=== PATIENT | male | born 1950 | race African-American/Black ===

== ENCOUNTER 2016-11-26 07:04 | Outpatient (CLI) | payer BC, MEDICARE ==
[2016-11-26 07:37] LABS: Hemoglobin A1c 7.6 % (4.0-6.0)
[2016-11-26 07:52] LABS: ALT (SGPT) 29 U/L (0-55); AST (SGOT) 24 U/L (5-34); Albumin 3.8 g/dL (3.4-4.8); Alkaline Phosphatase 72 U/L (40-150); Anion Gap 14 mmol/L (10-20); BUN (Urea Nitrogen) 16 mg/dL (8.4-25.7); Bilirubin, Direct 0.2 mg/dL (0.1-0.3); Bilirubin, Total 0.3 mg/dL (0.2-1.2); Calc. Creatinine Clearance 0 mL/min (70-130); Calcium 8.8 mg/dL (7.8-10.44); Carbon Dioxide 23 mmol/L (23-31); Chloride 104 mmol/L (98-107); Cholesterol 158 mg/dL (< 200 Desired); Estimated GFR-MDRD 58; Glucose 146 mg/dL (80-115); HDL Cholesterol 40 mg/dL (>60 Neg Risk); LDL Cholesterol, Calculated 100 mg/dL; Potassium 4.2 mmol/L (3.5-5.1); Protein, Total 7.2 g/dL (5.8-8.1); Sodium 137 mmol/L (136-145); Triglycerides 89 mg/dL (Less than 150)
== END 2016-11-26 07:05 | disposition home or self-care (01) ==
LOC: MADLABBHPM 07:04
PROVIDERS: ATTEND Family Medicine
DX: E11.9 Type 2 diabetes mellitus without complications (principal)
CPT/HCPCS: 36415; 80048; 80061; 80076; 83036

== ENCOUNTER 2017-07-26 07:15 | Outpatient (CLI) | payer MEDICARE, BC ==
[2017-07-26 07:49] LABS: Hemoglobin 15.1 g/dL (14.0-18.0); Mean Corpuscular HGB CONC 30.5 g/dL (32.0-36.0); Mean Corpuscular Hemoglobin 23.8 pg (27.0-31.0); Mean Corpuscular Volume 78.2 fL (80.0-94.0); Platelet Count 292 thou/uL (130-400); RBC Distribution Width 15.1 % (11.5-14.5); Red Blood Cell (RBC) Count 6.36 mill/uL (4.70-6.10); White Blood Cell (WBC) Count 7.2 thou/uL (4.8-10.8)
[2017-07-26 07:53] LABS: ALT (SGPT) 37 U/L (8-55); AST (SGOT) 26 U/L (5-34); Albumin 3.8 g/dL (3.4-4.8); Alkaline Phosphatase 76 U/L (40-150); BUN (Urea Nitrogen) 10 mg/dL (8.4-25.7); Bilirubin, Direct 0.2 mg/dL (0.1-0.3); Bilirubin, Total 0.4 mg/dL (0.2-1.2); Calc. Creatinine Clearance 0 mL/min (70-130); Estimated GFR-MDRD 63; Triglycerides 82 mg/dL (Less than 150)
[2017-07-27 06:15] LABS: Antinuclear AB Negative (Negative)
== END 2017-07-26 07:16 | disposition home or self-care (01) ==
LOC: MADLAB 07:15
PROVIDERS: ATTEND Physician Assistant Medical
DX: L40.0 Psoriasis vulgaris (principal)
CPT/HCPCS: 36415; 80076; 82565; 84478; 84520; 85027; 86038

== ENCOUNTER 2017-10-12 07:23 | Outpatient (CLI) | payer MEDICARE, BC ==
[2017-10-12 08:18] LABS: ALT (SGPT) 40 U/L (8-55); AST (SGOT) 29 U/L (5-34); Albumin 3.9 g/dL (3.4-4.8); Alkaline Phosphatase 79 U/L (40-150); BUN (Urea Nitrogen) 11 mg/dL (8.4-25.7); Bilirubin, Direct 0.2 mg/dL (0.1-0.3); Bilirubin, Total 0.5 mg/dL (0.2-1.2); Calc. Creatinine Clearance 0 mL/min (70-130); Estimated GFR-MDRD 69; Protein, Total 7.9 g/dL (5.8-8.1); Triglycerides 93 mg/dL (Less than 150)
[2017-10-12 08:40] LABS: Mean Corpuscular Hemoglobin 23.9 pg (27.0-31.0); Mean Corpuscular Volume 79.6 fl (80.0-94.0); Mean Platelet Volume 10.5 fL (7.4-10.4); Platelet Count 254 thou/uL (130-400); RBC Distribution Width 15.2 % (11.5-14.5); Red Blood Cell (RBC) Count 6.28 mill/uL (4.70-6.10); White Blood Cell (WBC) Count 6.2 thou/uL (4.8-10.8)
[2017-10-13 09:19] LABS: Antinuclear AB Negative (Negative)
== END 2017-10-12 07:24 | disposition home or self-care (01) ==
LOC: MADLAB 07:23
PROVIDERS: ATTEND Physician Assistant Medical
DX: L40.0 Psoriasis vulgaris (principal)
CPT/HCPCS: 36415; 80076; 82565; 84478; 84520; 85027; 86038

== ENCOUNTER 2017-11-24 10:32 | Outpatient (CLI) | payer BC, MEDICARE ==
[2017-11-24 11:07] LABS: Bilirubin Negative (Negative); Blood, Urine Negative (Negative); Clarity Clear (Clear); Glucose, Urine (Dipstick) >=1000 mg/dL (Negative); Leukocyte Negative (Negative); Nitrite Negative (Negative); Protein, Urine (Dipstick) Negative (Neg-Trace); Specific Gravity, Urine 1.015 (1.005-1.030); Urobilinogen 0.2 mg/dL (0.2-1.0); pH, Urine 5.5 (5.0-9.0)
[2017-11-24 11:14] LABS: RBC/HPF 0-3 HPF (0-3); WBC/HPF 0-3 HPF (0-3)
[2017-11-24 11:15] LABS: Bacteria/HPF Rare-Few HPF (None Seen); Squamous Epithelial 0-3 HPF (0-3)
== END 2017-11-24 10:33 | disposition home or self-care (01) ==
LOC: MADLABSP 10:32
PROVIDERS: ATTEND Family Medicine
DX: R30.0 Dysuria (principal)
CPT/HCPCS: 36415; 81001; 87086

== ENCOUNTER 2018-02-23 07:06 | Outpatient (CLI) | payer BC ==
[2018-02-23 08:23] LABS: ALT (SGPT) 29 U/L (8-55); AST (SGOT) 20 U/L (5-34); Albumin 3.8 g/dL (3.4-4.8); Alkaline Phosphatase 64 U/L (40-150); BUN (Urea Nitrogen) 11 mg/dL (8.4-25.7); Bilirubin, Direct 0.1 mg/dL (0.1-0.3); Bilirubin, Total 0.4 mg/dL (0.2-1.2); Calc. Creatinine Clearance 0 mL/min (70-130); Estimated GFR-MDRD 75; Protein, Total 7.5 g/dL (5.8-8.1); Triglycerides 70 mg/dL (Less than 150)
[2018-02-23 09:43] LABS: Hemoglobin 14.4 g/dL (14.0-18.0); Mean Corpuscular HGB CONC 29.9 g/dL (32.0-36.0); Mean Corpuscular Hemoglobin 22.5 pg (27.0-31.0); Mean Platelet Volume 8.4 fL (7.4-10.4); Platelet Count 296 thou/uL (130-400); RBC Distribution Width 14.1 % (11.5-14.5); Red Blood Cell (RBC) Count 6.41 mill/uL (4.70-6.10); White Blood Cell (WBC) Count 7.6 thou/uL (4.8-10.8)
[2018-02-24 12:27] LABS: ANA Symphony (Qualitative) Negative (Negative); dsDNA IgG Antibody 1.2 IU/mL (<10 Negative)
== END 2018-02-23 07:07 | disposition home or self-care (01) ==
LOC: MADLAB 07:06
PROVIDERS: ATTEND Physician Assistant Medical
DX: L40.0 Psoriasis vulgaris (principal)
CPT/HCPCS: 36415; 80076; 82565; 84478; 84520; 85027; 86038; 86225

== ENCOUNTER 2018-10-27 07:14 | Outpatient (CLI) | payer BC, MEDICARE ==
[2018-10-27 08:02] LABS: ALT (SGPT) 41 U/L (8-55); AST (SGOT) 27 U/L (5-34); Albumin 4.1 g/dL (3.4-4.8); Alkaline Phosphatase 74 U/L (40-150); BUN (Urea Nitrogen) 10 mg/dL (8.4-25.7); Bilirubin, Direct 0.1 mg/dL (0.1-0.3); Bilirubin, Total 0.3 mg/dL (0.2-1.2); Calc. Creatinine Clearance 0 mL/min (70-130); Estimated GFR-MDRD 65; Protein, Total 7.8 g/dL (5.8-8.1); Triglycerides 109 mg/dL (Less than 150)
[2018-10-27 08:25] LABS: Hemoglobin 14.5 g/dL (14.0-18.0); Mean Corpuscular HGB CONC 29.2 g/dL (32.0-36.0); Mean Corpuscular Volume 78.7 fL (78.0-98.0); Mean Platelet Volume 9.4 fL (7.4-10.4); Platelet Count 297 thou/uL (130-400); RBC Distribution Width 14.7 % (11.5-14.5); Red Blood Cell (RBC) Count 6.32 mill/uL (4.70-6.10); White Blood Cell (WBC) Count 7.6 thou/uL (4.8-10.8)
[2018-10-27 16:43] LABS: ANA Symphony (Qualitative) Negative (Negative); ANA Symphony (Quantitative) 0.6 Ratio (< 0.7 Negative); dsDNA IgG Antibody 0.5 IU/mL (<10 Negative)
== END 2018-10-27 07:15 | disposition home or self-care (01) ==
LOC: MADLAB 07:14
PROVIDERS: ATTEND Physician Assistant Medical
DX: L40.0 Psoriasis vulgaris (principal)
CPT/HCPCS: 36415; 80076; 82565; 84478; 84520; 85027; 86038; 86225

== ENCOUNTER 2019-03-12 07:25 | Outpatient (CLI) | payer BC, MEDICARE ==
[2019-03-12 08:37] LABS: Hemoglobin 13.8 g/dL (14.0-18.0); Mean Corpuscular HGB CONC 29.4 g/dL (32.0-36.0); Mean Corpuscular Hemoglobin 22.6 pg (27.0-31.0); Mean Corpuscular Volume 77.1 fL (78.0-98.0); Mean Platelet Volume 8.1 fL (7.4-10.4); Platelet Count 287 thou/uL (130-400); RBC Distribution Width 15.3 % (11.5-14.5); Red Blood Cell (RBC) Count 6.09 mill/uL (4.70-6.10); White Blood Cell (WBC) Count 7.4 thou/uL (4.8-10.8)
[2019-03-12 08:42] LABS: ALT (SGPT) 33 U/L (8-55); AST (SGOT) 27 U/L (5-34); Albumin 3.8 g/dL (3.4-4.8); Alkaline Phosphatase 68 U/L (40-150); BUN (Urea Nitrogen) 11 mg/dL (8.4-25.7); Bilirubin, Direct 0.1 mg/dL (0.1-0.3); Bilirubin, Total 0.2 mg/dL (0.2-1.2); Calc. Creatinine Clearance 0 mL/min (70-130); Estimated GFR-MDRD 71; Protein, Total 7.6 g/dL (5.8-8.1); Triglycerides 78 mg/dL (Less than 150)
[2019-03-14 16:17] LABS: ANA Symphony (Qualitative) Negative (Negative); ANA Symphony (Quantitative) 0.5 Ratio (< 0.7 Negative); dsDNA IgG Antibody 0.8 IU/mL (<10 Negative)
== END 2019-03-12 07:26 | disposition home or self-care (01) ==
LOC: MADLABBHPM 07:25
PROVIDERS: ATTEND Family Medicine
DX: L40.0 Psoriasis vulgaris (principal)
CPT/HCPCS: 36415; 80076; 82565; 84478; 84520; 85027; 86038; 86225

== ENCOUNTER 2019-08-06 07:07 | Outpatient (CLI) | payer BC, MEDICARE ==
[2019-08-06 07:40] LABS: Hemoglobin 14.6 g/dL (14.0-18.0); Mean Corpuscular HGB CONC 27.9 g/dL (32.0-36.0); Mean Corpuscular Hemoglobin 22.4 pg (27.0-31.0); Mean Corpuscular Volume 80.2 fL (78.0-98.0); Mean Platelet Volume 8.9 fL (7.4-10.4); Platelet Count 348 thou/uL (130-400); Red Blood Cell (RBC) Count 6.53 mill/uL (4.70-6.10); White Blood Cell (WBC) Count 7.7 thou/uL (4.8-10.8)
[2019-08-06 07:47] LABS: ALT (SGPT) 38 U/L (8-55); AST (SGOT) 27 U/L (5-34); Alkaline Phosphatase 68 U/L (40-110); BUN (Urea Nitrogen) 8 mg/dL (8.4-25.7); Bilirubin, Direct 0.2 mg/dL (0.1-0.3); Bilirubin, Total 0.3 mg/dL (0.2-1.2); Calc. Creatinine Clearance 0 mL/min (70-130); Estimated GFR-MDRD 67; Protein, Total 7.8 g/dL (5.8-8.1); Triglycerides 75 mg/dL (Less than 150)
[2019-08-10 15:40] LABS: ANA Symphony (Qualitative) Equivocal: See Note (Negative); ANA Symphony (Quantitative) 0.7 Ratio (< 0.7 Negative); dsDNA IgG Antibody 1.3 IU/mL (<10 Negative)
== END 2019-08-06 07:08 | disposition home or self-care (01) ==
LOC: MADLABBHPM 07:07
PROVIDERS: ATTEND Physician Assistant Medical
DX: L40.0 Psoriasis vulgaris (principal)
CPT/HCPCS: 36415; 80076; 82565; 84478; 84520; 85027; 86038; 86225

== ENCOUNTER 2025-05-09 06:49 | Outpatient (CLI) | payer OTHER ==
[2025-05-11 08:13] LABS: % Free PSA 51.3 % (.); Total PSA 0.8 ng/mL (0.0-4.0)
[2025-05-11 13:37] LABS: Hep C PCR-Quant HCV Not Detected IU/mL (.)
== END 2025-05-09 06:50 | disposition home or self-care (01) ==
LOC: MADLAB 06:49
PROVIDERS: ATTEND Family Medicine
DX: Z12.5 Encounter for screening for malignant neoplasm of prostate (principal); Z11.59 Encounter for screening for other viral diseases
CPT/HCPCS: 36415; 84153; 84154; 87522

== ENCOUNTER 2025-08-15 07:16 | Outpatient (CLI) | payer OTHER ==
[2025-08-15 07:40] LABS: Hematocrit 58.3 % (42.0-52.0); Hemoglobin 17.1 g/dL (14.0-18.0); Mean Corpuscular Hemoglobin 23.1 pg (27.0-31.0); Mean Corpuscular Volume 78.7 fl (78.0-98.0); Platelet Count 381 10x3/uL (130-400); Red Blood Cell (RBC) Count Greater than 7.09 mill/uL (4.70-6.10); White Blood Cell (WBC) Count 8.5 10x3/uL (4.8-10.8)
[2025-08-15 07:53] LABS: ALT (SGPT) 31 U/L (Less than 45); AST (SGOT) 36 U/L (11-34); Albumin 3.7 g/dL (3.1-4.5); Alkaline Phosphatase 68 U/L (40-110); Anion Gap 16 mmol/L (10-20); BUN (Urea Nitrogen) 23 mg/dL (8.4-25.7); Bilirubin, Total 0.5 mg/dL (0.3-1.2); Calc. Creatinine Clearance 0 mL/min (70-130); Calcium 9.8 mg/dL (7.8-10.44); Carbon Dioxide 20 mmol/L (23-31); Cardiac Risk 4.3 (Less than 4.5); Chloride 106 mmol/L (98-107); Cholesterol 149 mg/dl (< 200 Desired); Globulin 4.9 g/dL (2.4-3.5); Glucose 132 mg/dL (83-110); HDL Cholesterol 35 mg/dL (>60 Neg Risk); LDL Cholesterol, Calculated 94 mg/dL; Potassium 4.5 mmol/L (3.5-5.1); Sodium 137 mmol/L (136-145); Triglycerides 100 mg/dL (Less than 150)
[2025-08-15 09:30] LABS: MDiff Complete? YES; Manual Diff?? YES
[2025-08-15 09:31] LABS: Anisocytosis SLIGHT = 6-15 cells (100X) (0-5/hpf); Microcytosis SLIGHT = 6-15 cells (100X) (0-5/hpf); Platelet Adequacy Comment Appears Adequate
== END 2025-08-15 07:17 | disposition home or self-care (01) ==
LOC: MADLAB 07:16
PROVIDERS: ATTEND Family Medicine
DX: E11.22 Type 2 diabetes mellitus with diabetic chronic kidney disease (principal); N18.9 Chronic kidney disease, unspecified; E78.2 Mixed hyperlipidemia
CPT/HCPCS: 36415; 80053; 80061; 83036; 85025; 87522

== ENCOUNTER 2025-08-22 11:21 | Outpatient (CLI) | payer OTHER | END 2025-08-22 11:22 | disposition home or self-care (01) | LOC: MADRAD 11:21 | PROVIDERS: ATTEND Family Medicine | DX: M79.89 Other specified soft tissue disorders (principal) ==